=== PATIENT | male | born 1945 | race Caucasian/White ===

== ENCOUNTER → 2023-09-16 13:23 | Outpatient (REF) | payer MEDICARE, OTHER, SELFPAY ==
[2023-09-16 15:32] LABS: % Basophils 1.1 % (0-2); % Eosinophils 7.2 % (0-6); % Immature Granulocytes 0.2 % (0-0.5); % Lymphocytes 29.2 % (20.5-51.1); % Monocytes 9.2 % (1.7-9.3); % Neutrophils 53.1 % (42.2-75.2); Absolute Basophils 0.1 10^3/uL (0-0.2); Absolute Eosinophils 0.3 10^3/uL (0-0.7); Absolute Lymphocytes 1.4 10^3/uL (1.2-3.4); Absolute Monocytes 0.4 10^3/uL (0.1-0.6); Absolute Neutrophils 2.5 10^3/uL (1.4-6.5); Hematocrit 39.8 % (39.0-52.0); Hemoglobin 13.2 g/dL (13.0-18.0); Mean Corp Hgb Conc. 33.2 g/dL (33.0-37.0); Mean Corpuscular Hgb 33.2 pg (27.0-31.0); Mean Platelet Volume 9.9 fL (7.4-10.4); Nucleated Red Blood Cells % 0 % (-); Platelet Count 208 10^3/uL (130-400); Red Blood Cell Count 3.98 10^6/uL (4.70-6.10); Red Cell Dist. Width 12.7 % (11.5-14.5); White Blood Cell Count 4.7 10^3/uL (4.8-10.8)
== END ==
LOC: HWLAB 13:23
PROVIDERS: ATTENDING PHYSICIAN Internal Medicine
DX: N50.82 Scrotal pain (principal); N45.1 Epididymitis
CPT/HCPCS: 36415; 85025

== ENCOUNTER → 2023-09-24 16:28 | Outpatient (REF) | payer MEDICARE, OTHER, SELFPAY | LOC: RAD 16:28 | PROVIDERS: ATTENDING PHYSICIAN Internal Medicine | DX: N50.82 Scrotal pain (principal); N45.1 Epididymitis | CPT/HCPCS: 76870; 93976 ==

== ENCOUNTER → 2024-04-23 16:22 | Outpatient (REF) | payer MEDICARE, OTHER, SELFPAY | LOC: HWRAD 16:22 | PROVIDERS: ATTENDING PHYSICIAN Nurse Practitioner Family | DX: R05.9 Cough, unspecified (principal) | CPT/HCPCS: 71046 ==

== ENCOUNTER 2024-04-26 18:31 | Observation (INO) | payer MEDICARE, OTHER, SELFPAY ==
[2024-04-26 13:52] VITALS: BP 145/85
--- NOTE | 2024-04-26 13:55 | ED.GENMED ---
ED Provider Triage
<Salas Dolan Jr., PA-C - Last Filed: 04/26/24 13:56>
-
Patient seen by provider in Triage?: Seen in Triage
Attestation: A medical screening examination has been initiated by a qualified medical provider. Based on the assessment performed at this time, it has been determined that an emergent medical condition may exist and the patient has been informed
that further medical evaluation and possible additional diagnostic testing may be needed.
HPI: 78-year-old male presenting to the emergency department with concerns of failed outpatient management of pneumonia. Was diagnosed with the flu 2 weeks ago started on Tamiflu had some worsening symptoms and had an x-ray 3 days ago showing a
right lower lobe pneumonia started on doxycycline and Ceftin not having any improvement ongoing chest discomfort shortness of breath cough and intermittent fever. Here initial labs repeated chest x-ray ordered for further assessment. Otherwise
pulse ox in the 90s at triage
GENERAL: Alert , in no apparent distress
EYE: No visual abnormalities.
NECK: Trachea midline
ENT: No visible abnormalities.
LUNGS: No acute respiratory distress
NEUROLOGICAL: Alert and oriented
SKIN: Skin intact. No visible changes.
MUSCULOSKELETAL: Moving extremities normally
PSYCH: Normal and appropriate interaction.
This is a medical evaluation conducted in person to initiate diagnostic evaluation and provide initial therapeutics. Please see further documentation by the treating clinician.
History of Present Illness
<Salas Dolan Jr., PA-C - Last Filed: 04/26/24 13:56>
General
Chief Complaint: Pneumonia Symptoms
Time Seen by Provider: 04/26/24 16:50
<Marlon Burroughs PA-C - Last Filed: 04/26/24 17:13>
General
Source: patient
Exam Limitations: none
History of Present Illness
History of Present Illness:
78-year-old male presents with worsening illness including cough fatigue decreased appetite. He was diagnosed with influenza 1226 and completed a course of Tamiflu. He persisted to be sick with a cough and chills. Outpatient x-ray performed last
week demonstrated right middle lobe pneumonia. Family doctor started on doxycycline and cefuroxime. He notes no improvement and notes persistent cough fatigue and chills. He states he is not eating or drinking much either. He is not a smoker.
No history of diabetes. He denies chest pain. No leg swelling. No other complaints at this time
Past History
<Salas Dolan Jr., PA-C - Last Filed: 04/26/24 13:56>
Past History
ED Past Medical History: GERD
ED Past Surgical History: Tonsilectomy and Urological
Social History
Tobacco: Non-smoker
Alcohol: Daily (wine with dinner)
Drug: None
Personal:
Living: with family
Family History
Family History: Negative Diabetes, Hypertension, Early CAD, Asthma or Cancer
Phy Exam
<Marlon Burroughs PA-C - Last Filed: 04/26/24 17:13>
Physical Exam
Physical Exam:
General: Slightly ill-appearing male no acute respiratory distress HEENT: Normocephalic atraumatic neck is supple
Heart: Regular rate and rhythm no murmurs
Lungs: Rales right side left side clear
Abdomen is soft nontender nondistended no guarding rebound
Extremities: No cyanosis
Skin: Warm no rash
Course
<Salas Dolan Jr., PA-C - Last Filed: 04/26/24 13:56>
Orders/Labs/Results
Orders:
Orders
04/26/24 13:53
Electrocardiogram (*1) Stat
Reason for Study: Other
Other Reason for Exam: pneumonia
EKG- Treatment ONCE
CR Chest - 2 Views Urgent
Comment:
Reason For Exam: sob cough
04/26/24 14:02
Complete Blood Count/With Diff Urgent
Comprehensive Metabolic Panel Urgent
Lactic Acid Q4H
Comment: CANCEL 2nd LACTIC ACID IF 1st LACTIC ACID IS LESS THAN 2
NT-proBNP Urgent
04/26/24 17:04
0.9% Sodium Chloride 1000 ml [Nss] 1,000 ml IV BOLUS
04/26/24 17:08
Azithromycin 500 mg/250 ml [Zithromax Infusion] 500 mg in 250 ml IV NOW
CefTRIAXone [Rocephin] 1,000 mg IV NOW STA
Abnormal Lab Results
04/26/24
14:02
RBC 4.29 L 10^6/uL
(4.70-6.10)
MCV 96.0 H fL
(80.0-94.0)
MCH 33.1 H pg
(27.0-31.0)
Absolute Monos (auto) 0.7 H 10^3/uL
(0.1-0.6)
Lymphocytes % 16.2 L %
(20.5-51.1)
Glucose 105 H mg/dl
(70-99)
04/26/24 14:02
04/26/24 14:02
Vital Signs
Initial and Last Documented VS:
Initial Vital Signs
Temp Pulse Resp BP Pulse Ox
98.2 F 76 20 145/85 98
04/26/24 13:52 04/26/24 13:52 04/26/24 13:52 04/26/24 13:52 04/26/24 13:52
Last Documented Vital Signs
Temp Pulse Resp BP Pulse Ox
98.2 F 74 18 119/78 97
04/26/24 13:52 04/26/24 15:18 04/26/24 15:18 04/26/24 15:18 04/26/24 15:18
<Marlon Burroughs PA-C - Last Filed: 04/26/24 17:13>
Orders/Labs/Results
Orders:
Orders
04/26/24 13:53
Electrocardiogram (*1) Stat
Reason for Study: Other
Other Reason for Exam: pneumonia
EKG- Treatment ONCE
CR Chest - 2 Views Urgent
Comment:
Reason For Exam: sob cough
04/26/24 14:02
Complete Blood Count/With Diff Urgent
Comprehensive Metabolic Panel Urgent
Lactic Acid Q4H
Comment: CANCEL 2nd LACTIC ACID IF 1st LACTIC ACID IS LESS THAN 2
NT-proBNP Urgent
04/26/24 17:04
0.9% Sodium Chloride 1000 ml [Nss] 1,000 ml IV BOLUS
04/26/24 17:08
Azithromycin 500 mg/250 ml [Zithromax Infusion] 500 mg in 250 ml IV NOW
CefTRIAXone [Rocephin] 1,000 mg IV NOW STA
Abnormal Lab Results
04/26/24
14:02
RBC 4.29 L 10^6/uL
(4.70-6.10)
MCV 96.0 H fL
(80.0-94.0)
MCH 33.1 H pg
(27.0-31.0)
Absolute Monos (auto) 0.7 H 10^3/uL
(0.1-0.6)
Lymphocytes % 16.2 L %
(20.5-51.1)
Glucose 105 H mg/dl
(70-99)
04/26/24 14:02
04/26/24 14:02
Vital Signs
Initial and Last Documented VS:
Initial Vital Signs
Temp Pulse Resp BP Pulse Ox
98.2 F 76 20 145/85 98
04/26/24 13:52 04/26/24 13:52 04/26/24 13:52 04/26/24 13:52 04/26/24 13:52
Last Documented Vital Signs
Temp Pulse Resp BP Pulse Ox
98.2 F 74 18 119/78 97
04/26/24 13:52 04/26/24 15:18 04/26/24 15:18 04/26/24 15:18 04/26/24 15:18
<Marlon Burroughs PA-C - Last Filed: 04/26/24 17:13>
MDM/Problems Addressed
Differential Diagnosis Includes:
Persistent cough shortness of breath fatigue. X-ray redemonstrates right middle lobe pneumonia today. Labs reviewed normal BMP white count is normal however clinically patient is declining. Patient is failing outpatient treatment with oral
antibiotics. Will transition to IV fluids Zithromax and Rocephin will admit to hospital for persistent pneumonia
<Marlon Burroughs PA-C - Last Filed: 04/26/24 17:13>
*Critical Care Note
Total Time (30-74mins, 75-104mins- exclusive of procedures): Not Applicable
ED Attending Note
<Salas Dolan Jr., PA-C - Last Filed: 04/26/24 13:56>
-
Portions of this chart may have been created with voice recognition software.� Occasional wrong word or��sound alike� substitutions may have occurred due to the inherent limitations of voice recognition software.
Discharge Plan
Departure
Patient Disposition: Admit
Date of Disposition: 04/26/24
Time of Disposition: 17:12
Presentation/result/management discussed w/ accepting MD/DO: Hospitalist
Discharge Problem:
Pneumonia
Prescriptions:
No Action
ascorbic acid (vitamin C) [Vitamin C] 1,000 MG tablet
1,000 mg PO DAILY
atorvastatin 10 MG tablet
10 mg PO QPM
omeprazole 40 MG capsule,delayed release(DR/EC)
40 mg PO DAILY
aspirin 81 MG tablet,chewable
81 mg PO HS
vitamin B complex 1 TAB tablet
1 tab PO DAILY
magnesium 200 MG tablet
600 mg PO BID
coenzyme Q10 [Co Q-10] 200 MG capsule
200 mg PO BID
cholecalciferol (vitamin D3) 2,000 UNITS tablet
5,000 units PO DAILY
alpha lipoic acid 200 MG capsule
200 mg PO DAILY
omega 7-mci-xnt-fish oil 1 EACH capsule
1 ea PO DAILY
L.acidoph,paracasei,B.animalis 1 EACH capsule
1 ea PO DAILY
lidocaine 1 EACH adhesive patch,medicated
1 ea TP HS
Referrals:
Emmanuel Carlos CRNP [Family Provider] -
Interventions
Interventions:
*General Assessment Last Done: 04/26/24 17:08
ED- Fall Risk Assessment Last Done: 04/26/24 17:08
ED- Cardiac Assessment Last Done: 04/26/24 17:08
ED- Pulmonary Assessment Last Done: 04/26/24 17:08
Discharge Date and Time
Print Language: [place]
[2024-04-26 14:27] LABS: % Basophils 0.4 % (0-2); % Eosinophils 0.9 % (0-6); % Immature Granulocytes 0.3 % (0-0.5); % Lymphocytes 16.2 % (20.5-51.1); % Monocytes 9.3 % (1.7-9.3); % Neutrophils 72.9 % (42.2-75.2); Absolute Eosinophils 0.1 10^3/uL (0-0.7); Absolute Lymphocytes 1.3 10^3/uL (1.2-3.4); Absolute Monocytes 0.7 10^3/uL (0.1-0.6); Absolute Neutrophils 5.8 10^3/uL (1.4-6.5); Hematocrit 41.2 % (39.0-52.0); Hemoglobin 14.2 g/dL (13.0-18.0); Mean Corp Hgb Conc. 34.5 g/dL (33.0-37.0); Mean Corpuscular Hgb 33.1 pg (27.0-31.0); Mean Platelet Volume 8.7 fL (7.4-10.4); Nucleated Red Blood Cells % 0 % (-); Platelet Count 312 10^3/uL (130-400); Red Blood Cell Count 4.29 10^6/uL (4.70-6.10); Red Cell Dist. Width 12.3 % (11.5-14.5)
[2024-04-26 14:43] LABS: ALT (SGPT) 21 U/L (0-50); AST (SGOT) 31 U/L (17-59); Albumin 3.9 g/dl (3.5-5.0); Alkaline Phosphatase 63 U/L (38-126); Blood Urea Nitrogen 13 mg/dl (9-20); Carbon Dioxide 27 mmol/L (22-30); Chloride 100 mmol/L (98-107); Glucose 105 mg/dl (70-99); Lactic Acid 1.1 mmol/L (0.7-2.0); Potassium 4.4 mmol/L (3.5-5.1); Sodium 138 mmol/L (135-145); Total Protein 6.9 g/dl (6.3-8.2); eGFR > 60.00
[2024-04-26 14:50] LABS: NT-proBNP 576 pg/ml
[2024-04-26 15:18] VITALS: BP 119/78
[2024-04-26 17:10] VITALS: BP 122/74
[2024-04-26] MEDS: NSS 1000 IV (17:15)
[2024-04-26] MEDS: ROCEPHIN 1000 MG IV (17:16)
[2024-04-26] MEDS: ZITHROMAX INFUSION 250 IV (17:16)
--- NOTE | 2024-04-26 17:46 | HPS.HSE ---
Addendum entered and electronically signed by Sandeep Fernández MD 04/27/24 07:43:
See my update note
Original Note:
Family Physician
-
Family Physician: VARSHA Aly
Chief Complaint
-
Persistent Cough
History of Present Illness
Patient is a 78 y/o male past medical history of interstitial lung disease who presents with persistent cough and shortness of breath. Patient reports he was diagnosed with Influenza A on Apr 15. He say his PCP on April 23 due to persistent
cough at which time he had a CXE that revealed pneumonia and he was prescribed cefuroxime and doxycycline. Patient reports despite oral antibiotics he continues with cough, mild shortness of breath and signficant fatgue. He denies fevers, sweats or
chills.
Medical History
Past Medical History
Past Medical History: Reports Other
Additional Past Medical History:
Interstital Lung Disease
SVT
Hyperlipidemia
GERD
Obstructive Sleep Apnea
Past Surgical History: Reports Other
Additional Past Surgical History:
Tonsillectomy
Vasectomy
Social History
Tobacco: Non-smoker
Alcohol: Daily (Wine with dinner)
Personal:
Living: With Family
Family History
Family History: Not pertinent
Allergies / Home Medications
Allergies reflects when Allergies were last updated in [facility].
Home Medications with original date entered in [facility]
Allergy/Medication List:
Allergies
Allergy/AdvReac Type Severity Reaction Status Date / Time
pollen extracts Allergy Itching Verified 10/26/20 08:20
Home Medications
ascorbic acid (vitamin C) 1,000 mg tablet (Vitamin C) 1,000 mg PO DAILY 10/19/20
aspirin 81 mg chewable tablet 81 mg PO HS 10/19/20
atorvastatin 10 mg tablet 10 mg PO HS 10/19/20
coenzyme Q10 200 mg capsule (Co Q-10) 200 mg PO DAILY 10/19/20
omeprazole 40 mg capsule,delayed release 40 mg PO DAILY 10/19/20
vitamin B complex 1 tab PO DAILY 10/19/20
Lactobac no.2-Bifidobac no.1-S. thermo 112.5 billion cell capsule (Visbiome) 1 cap PO DAILY 04/26/24
albuterol sulfate 90 mcg/actuation aerosol inhaler 2 puff inhalation R Q6HPRN PRN sob 04/26/24
cefuroxime axetil 500 mg tablet 500 mg PO BID 04/26/24
cholecalciferol (vitamin D3) 125 mcg (5,000 unit) tablet (Vitamin D3) 125 mcg PO DAILY 04/26/24
doxycycline hyclate 100 mg capsule 100 mg PO BID 04/26/24
magnesium oxide 200 mg PO DAILY 04/26/24
omega-3 fatty acids-fish oil 684 mg-1,200 mg capsule,delayed release 1 cap PO DAILY 04/26/24
Review of Systems
-
A 12 point ROS was completed and negative except as noted: Yes
Constitutional: Denies Fever or Chills
Respiratory: Reports See HPI
Physical Exam
Vital Signs
Vital Signs
Temp Pulse Resp BP Pulse Ox
98.2 F 74 18 122/74 97
04/26/24 13:52 04/26/24 17:10 04/26/24 17:10 04/26/24 17:10 04/26/24 17:10
Physical Exam
General: Comfortable and Conversant
HEENT: Anicteric and Other (Mask covering nose and mouth)
Respiratory: Wheezes, Rales (Right) and Non Labored Respirations
Cardiac: S1/S2 and Regular Rhythm
GI: Soft and Non Tender
Musculoskeletal: No Clubbing, No Cyanosis and No Edema
Skin: Warm and Dry
Neuro: Awake, Alert, Oriented and Nonfocal/grossly intact
Psych: Calm
Laboratory Results
-
04/26/24 14:02
04/26/24 14:02
Laboratory Results
Lactic Acid Cancelled 04/26/24 18:00
Total Bilirubin 1.0 mg/dl (0.2-1.3) 04/26/24 14:02
AST 31 U/L (17-59) 04/26/24 14:02
ALT 21 U/L (0-50) 04/26/24 14:02
Alkaline Phosphatase 63 U/L (38-126) 04/26/24 14:02
Data Reviewed
-
Diagnostic Radiology: Report Reviewed by me
Lab Data: Labs Reviewed by me
Impression/Plan
-
Right Middle Lobe Pneumonia / Acute Bronchitis
-Transition to Vancomycin and Cefepime given failed oral antibiotics and underlying interstitial lung disease
-Check strep and legionella antigen
-Attempt to obtain sputum culture
-Add Mucinex and Tessalon Perles for cough
-Add DuoNeb QID and PRN
-Add Decadron 4mg q8h
Hyperlipidemia
-Continue atorvastatin
GERD
-Continue Protonix
DVT proph: Lovenox
Code Status: Full Code
[2024-04-26 18:07] LABS: COVID-19 Antigen Negative (Negative)
--- NOTE | 2024-04-26 18:21 | W.PN.UPDATE ---
Update Note
Progress Note Update
Seen and examined by me independently in collaboration with the nurse practitioner Asael.
Past medical history/social history/medication/allergies reviewed.
Lab data and imaging data reviewed.
Patient with a history of asbestosis exposure and ILD based on prior imaging [not by history from patient] had flu positive over the [place]. Been continued on feeling fatigued and having cough with now shortness of breath. 2 days ago he had a
chest x-ray which raised a concern of a right middle lobe pneumonia and was put on antibiotics without improvement. He continues to feel worse with fatigue and shortness of breath. No fever or chills.His heard some wheezing at home. He has
used the as needed inhalers. Hx of recurrent pneumonia per pt. 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
Nontoxic looking. Not hypoxic.
Chest exam shows right-sided reactive airways with wheeze and there are few crackles in the left base 2. No respiratory distress.
Repeat chest x-ray shows persistent right middle lobe opacity.
Clinical case of community-acquired pneumonia post influenza infection. With a history of ILD and recurrent pneumonias and failed outpatient oral cephalosporin/doxycycline treatments will admit patient to hospital, start on cefepime and vancomycin
for MDR pending culture data. Check an MRSA swab, sputum culture, urinary Streptococcus/Legionella antigen. If spikes fever check blood cultures.
Patient also have reactive airways with underlying pneumonia. Will treat with a short course of steroids as well and follow the progress.
Full code.
[2024-04-26 19:03] VITALS: BP 120/72
[2024-04-26 19:27] LABS: Procalcitonin < 0.05 ng/ml (0.0-0.25)
[2024-04-26 21:02] VITALS: BP 141/80; BMI 21.6
[2024-04-26] MEDS: DUONEB 3 ML INH (21:18)
--- NOTE | 2024-04-26 21:52 | PHA.VAN.IN ---
Assessment
- Assessment
Renal Function: Appears similar to baseline
Concomitant Antimicrobials: CEFEPIME
- Previous Dosing Experience
Previous Regimen: NONE
AUC Dosing Plan
- Dosing Variables
Dosing Weight (kg): 76.4
Dosing CrCl (ml/min): 97
Vd coefficient (L/kg): 0.7
- Empiric Dosing
Initial / Loading Dose: 2GM
Maintenance Regimen: 1250MG IV Q12H
Estimated AUC (mcg*h/mL): 586
Estimated Peak (mcg*h/mL): 36.6
Estimated Trough (mcg/ml): 15
Estimated Half Life (H): 8.2
Pharmacokinetics Vancomycin I
- -
Patient Age: 78
Patient Sex: Male
Vancomycin Day #: 1
Indication: Pulmonary/Respiratory
Height / Weight:
Height 6 ft 2 in
Actual Weight 76.402 kg
Pertinent Past Medical History: ILD; RECURRENT PNA
- Vital Signs / Lab Results
Temp Pulse Resp BP Pulse Ox
98 F 77 18 141/80 95
04/26/24 21:02 04/26/24 21:22 04/26/24 21:22 04/26/24 21:02 04/26/24 21:22
Lab Results - Hematology
04/26/24
14:02
WBC 8.0
Lab Results - Chemistry
04/26/24
14:02
BUN 13
Creatinine 0.7
Albumin 3.9
04/26/24 04/26/24
14:02 18:00
Lactic Acid 1.1 Cancelled
Microbiology Results
04/26/24 17:23 Influenza Types A & B (MAXIMILIANO) - Final
Nasal Swab Negative for Influenza A & B, NAAT
Negative results must be combined with clinical observations
and patient history.
Nucleic Acid Amplification test (NAAT)performed on the
[employer] platform.
[2024-04-26] MEDS: LOVENOX 40 MG SC (22:07)
[2024-04-26] MEDS: MUCINEX 600 MG PO (22:08)
[2024-04-26] MEDS: DECADRON 4 MG IV (22:09)
[2024-04-26] MEDS: VANCOCIN 540 MG IV (22:09)
[2024-04-26] MEDS: LIPITOR 10 MG PO (22:10)
[2024-04-26] MEDS: LOW STRENGTH ASPIRIN 81 MG PO (22:10)
[2024-04-26] MEDS: MAXIPIME 1000 MG IV (22:12)
[2024-04-26] MEDS: STERILE WATER FOR INJECTION 10 ML IV (22:12)
--- NOTE | 2024-04-26 22:40 | PTCARENOTE ---
Receive pt from ER. Pt alert oriented X3, calm and cooperative, in no resp distress. Pt assist X1 to his bed, steady gait. Pt oriented to the room, call eid within reach. Pt has a a frequent moist non productive cough, dyspnea on exertion. Pt
denies chest pain, dizziness, or legs swelling. VSS (T=98, HR=80, RR=19, SpO2=97% on RA). IV Decadron, maxipime given, IV Vancomycin infusing as per order. Will continue to monitor.
[2024-04-26 23:30] VITALS: BP 126/78
[2024-04-27] MEDS: MAXIPIME 1000 MG IV ×3 (05:07→22:14)
[2024-04-27] MEDS: STERILE WATER FOR INJECTION 10 ML IV ×3 (05:07→22:14)
[2024-04-27] MEDS: DECADRON 4 MG IV ×3 (05:07→22:13)
[2024-04-27] MEDS: VANCOCIN 275 MG IV (05:08)
[2024-04-27 06:00] VITALS: BMI 21.4
[2024-04-27 07:00] VITALS: BP 132/75
[2024-04-27] MEDS: DUONEB 3 ML INH ×4 (07:23→19:25)
[2024-04-27] MEDS: MUCINEX 600 MG PO ×2 (08:00→20:30)
[2024-04-27] MEDS: PROTONIX 40 MG PO (08:00)
--- NOTE | 2024-04-27 08:33 | PHA.VAN.FU ---
Vancomycin Assessment / Plan
- Assessment
Renal Function: No New Labs Today
In the past 24 hrs, patient has been: Afebrile
Concomitant Antimicrobials: cefepime
- Dosing Plan
Adjust Regimen to: Vanc 1000mg Q12H starting at 1800
New Regimen Predicts: AUC (472), Peak (30), Trough (11.9)
- Monitoring Plan
No level(s) ordered at this time: consider levels in next few days
- Follow Up
Pharmacy will continue to follow.
Vancomycin Follow UP
- -
Patient Age: 78
Patient Sex: Male
Vancomycin Day #: 2
Indication: Pulmonary/Respiratory
Requesting Provider: Curly Foss
Pertinent Antimicrobial Allergies:
no pertinent antibiotic allergies
Height / Weight:
Height 6 ft 2 in
Actual Weight 75.41 kg
Pertinent Past Medical History: ILD, recent influenza
- Vital Signs / Lab Results
Temp Pulse Resp BP Pulse Ox
98 F 52 15 132/75 95
04/27/24 07:00 04/27/24 07:29 04/27/24 07:29 04/27/24 07:00 04/27/24 08:00
Lab Results - Hematology
04/26/24
14:02
WBC 8.0
Lab Results - Chemistry
04/26/24
14:02
BUN 13
Creatinine 0.7
Albumin 3.9
04/26/24 04/26/24
14:02 18:00
Lactic Acid 1.1 Cancelled
Microbiology Results
04/27/24 06:17 Legionella Urinary Antigen - Final
Urine Negative for Legionella pneumophila Serogroup 1 antigen.
A negative result does not rule out the possiblity of
Legionella infection due to other serogroups or species of
Legionella. Clinical correlation is recommended.
Streptococcus pneumoniae Antigen (M - Final
Negative for Streptococcus pneumoniae antigen.
A negative result does not exclude infection with
Streptococcus pneumoniae. Clinical correlation is
recommended.
04/26/24 17:23 Influenza Types A & B (MAXIMILIANO) - Final
Nasal Swab Negative for Influenza A & B, NAAT
Negative results must be combined with clinical observations
and patient history.
Nucleic Acid Amplification test (NAAT)performed on the
[employer] platform.
--- NOTE | 2024-04-27 12:13 | W.PN.HOSP.TC ---
Today's Communication/Plan
-
DC Vanco
CW Cefepime and steroids
CW nebs
Assessment / Plan
Assessment / Plan
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
-Failed oral antibiotics and underlying interstitial lung disease
-Neg strep and legionella antigen
-Attempt to obtain sputum culture
-cw Mucinex and Tessalon Perles for cough
-cw DuoNeb QID and PRN
-cw Decadron 4mg q8h
- MRSA swab neg- dc vanco and cw Cefepime till cx data is back
Patient is feeling improved.-Continue with the current dose of steroids and antibiotics. procalcitonin being negative noted but clinical picture of post influenza infection and underlying ILD cannot rule out bacterial component, failed OP abx.
Continue with antibiotics .
Hyperlipidemia
-Continue atorvastatin
GERD
-Continue Protonix
DVT proph: Lovenox
Code Status: Full Code
Anticipated Discharge: Within 24 hours
Subjective/Interval History
-
Date of Service: April 27, 2024
Feeling improved since yesterday. Improved fatigue. Cough still present mostly dry. Breathing comfortable at rest.
No chest pain.
No fever chills.
No nausea vomiting.
Objective Data
-
Vital Signs:
Vital Signs
Temp Pulse Resp BP Pulse Ox
98 F 52 15 132/75 95
04/27/24 07:00 04/27/24 07:29 04/27/24 07:29 04/27/24 07:00 04/27/24 09:32
I&O
04/26/24 04/27/24 04/28/24
06:59 06:59 06:59
Intake Total 715 / 715 180 / 180
Output Total 350 / 350
Balance 365 / 365 180 / 180
Review of Systems
-
Constitutional: Denies Fever or Chills
EENT: Denies Sore Throat
Abdomen/GI: Denies Abdominal Pain, Nausea, Vomiting or Diarrhea
Neuro: Denies Dizzy or Headache
Physical Exam
-
General: No Apparent Distress
Respiratory: Non Labored Respirations and Decreased Breath Sounds (in general); Negative Wheezes (today), Crackles (today) or Accessory Resp Muscle Use
Cardiac: Regular Rhythm and S1/S2
Neuro: AO x 3
Data Reviewed
-
Labs: Labs Reviewed by me
[2024-04-27 15:07] VITALS: BP 122/70
--- NOTE | 2024-04-27 15:08 | CM ---
Alert awake oriented patient who lives with his Natacha who lives in a 1 story home with 1 step to enter and bed and bathroom on first floor. He is independent in driving and in all activities of daily living.He was offered VN he declined need.
No adaptive devices.His addresses [address]
NO VN hx / No SNF history
Pharmacy [facility]
PCP Ramona Flores
PLAN Home Declined VN
[2024-04-27] MEDS: LOVENOX 40 MG SC (17:54)
[2024-04-27] MEDS: LIPITOR 10 MG PO (22:13)
[2024-04-27] MEDS: LOW STRENGTH ASPIRIN 81 MG PO (22:14)
[2024-04-27 23:37] VITALS: BP 110/69
[2024-04-28] MEDS: DECADRON 4 MG IV ×2 (05:54→14:24)
[2024-04-28] MEDS: STERILE WATER FOR INJECTION 10 ML IV ×2 (05:55→14:25)
[2024-04-28] MEDS: MAXIPIME 1000 MG IV ×2 (05:55→14:25)
[2024-04-28 06:00] VITALS: BMI 21.3
[2024-04-28] MEDS: DUONEB 3 ML INH ×2 (07:11→10:57)
[2024-04-28 07:30] VITALS: BP 124/75
[2024-04-28] MEDS: FLUSH (NSS) 1 FLUSH IV ×2 (08:06→14:25)
[2024-04-28] MEDS: MUCINEX 600 MG PO (08:06)
[2024-04-28] MEDS: PROTONIX 40 MG PO (08:06)
--- NOTE | 2024-04-28 13:43 | W.PN.HOSP.TC ---
Today's Communication/Plan
-
DC
Assessment / Plan
Assessment / Plan
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
-Failed oral antibiotics and underlying interstitial lung disease
-Neg strep and legionella antigen
-Attempt to obtain sputum culture
-cw Mucinex and Tessalon Perles for cough
-No wheeze today, improved clincal symptoms. Switch to PRN albuterol inhaler
- Switch to oral prednione and quickly taper
- MRSA swab neg- dced vanco
- So far dx neg
- With improvement will switch to oral cefpodoxime for 5 more days
Patient is feeling improved. procalcitonin being negative noted but clinical picture of post influenza infection and underlying ILD cannot rule out bacterial component, failed OP abx. Continue with antibiotics .
Hyperlipidemia
-Continue atorvastatin
GERD
-Continue Protonix
DVT proph: Lovenox
Code Status: Full Code
Medically stable for dc home today
Patient advised to repeat a chest x-ray in 3 to 4 weeks time to follow the pneumonia.
Problem discharge 32 minutes
Anticipated Discharge: Today
Subjective/Interval History
-
Date of Service: April 28, 2024
Feeling improved .
Denies SOB at rest.
No fever.
Improved fatigue.
No N/V or chest pain.
Objective Data
-
Vital Signs:
Vital Signs
Temp Pulse Resp BP Pulse Ox
97.5 F 59 16 124/75 97
04/28/24 07:30 04/28/24 10:59 04/28/24 10:59 04/28/24 07:30 04/28/24 10:59
I&O
04/27/24 04/28/24 04/29/24
06:59 06:59 06:59
Intake Total 715 / 715 1380 / 1380
Output Total 350 / 350
Balance 365 / 365 1380 / 1380
Review of Systems
-
Constitutional: Denies Fever
Respiratory: Reports Cough (ok); Denies Trouble Breathing
Neuro: Denies Dizzy
Physical Exam
-
General: Comfortable
HEENT: Moist Mucous Membranes
Respiratory: Non Labored Respirations; Negative Wheezes, Crackles or Accessory Resp Muscle Use
Cardiac: Regular Rhythm and S1/S2
Neuro: AO x 3
Psych: Calm; Negative Confused
--- NOTE | 2024-04-28 15:26 | CM ---
MD entered order for discharge.
Spoke with pt in room .He said he was ready for discharge.
He said his Natacha will drive hem home.
Offered VN he declined need.
PLAN Home no needs
[2024-04-28] MEDS: DUONEB INH (15:32)
[2024-04-28 15:37] VITALS: BP 117/68
--- NOTE | 2024-04-28 18:41 | W.DCSUMMARY ---
Discharge Summary
Discharge Data
Date of Admission: 04/26/24
Date of Discharge: 04/28/24
-
Pending Results: No
Hospital Course
Primary diagnosis:
Right Middle Lobe Pneumonia
Acute bronchitis
Post influenza infection
History of interstitial lung disease
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
Secondary diagnosis:
Hyperlipidemia
Gastroesophageal reflux disease
Hospital course:
Patient with a history of asbestosis exposure and ILD based on prior imaging [not by history from patient] had flu positive over the [place]. Been continued on feeling fatigued and having cough with now shortness of breath. 2 days ago he had a
chest x-ray which raised a concern of a right middle lobe pneumonia and was put on antibiotics without improvement. He continues to feel worse with fatigue and shortness of breath.
On admission Chest exam shows right-sided reactive airways with wheeze and there are few crackles in the left base . No respiratory distress.
Repeat chest x-ray shows persistent right middle lobe opacity.
Clinical case of community-acquired pneumonia post influenza infection. With a history of ILD and recurrent pneumonias and failed outpatient oral cephalosporin/doxycycline treatments.
He was admitted initially put on cefepime and vancomycin. His culture data including blood cultures, urinary Streptococcus and Legionella antigen were negative. MRSA swab was negative. His Vanco was discontinued was continued on cefepime.
Steroids were added because of reactive airways. With the above treatments he had improvement.
Procalcitonin was negative but clinical picture of post influenza infection and underlying ILD cannot rule out bacterial component, failed OP abx I would Continue with antibiotics.
He was advised to get a repeat chest x-ray in 3 to 4 weeks time to follow-up on the right middle lobe pneumonia.
Discharge Plan
-
Patient Disposition: Home (Routine Discharge)
Discharge Diagnosis/Procedures: RML pneumonia
Diet: Regular
Activity: As tolerated
Driving Restrictions: As prior to admission
Bathing Restrictions: None
Others Tests: Chest xray two-view in 3 to 4 weeks time-arrange through PCP
Referrals:
Emmanuel Carlos CRNP [Family Provider] - in less than 1 week
Prescriptions:
New
prednisone 10 mg tablet
10 mg PO DIRECTED Qty: 20 0RF
Rx Instructions:
40mg daily and cut it by 10mg every 2 days
guaifenesin 600 mg Tablet Extended Release 12hr
600 mg PO Q12 Qty: 14 0RF
cefpodoxime 200 mg tablet
200 mg PO BID Qty: 10 0RF
benzonatate 100 mg Capsule
200 mg PO TIDPRN PRN (Reason: cough) Qty: 20 0RF
Continued
ascorbic acid (vitamin C) [Vitamin C] 1,000 MG tablet
1,000 mg PO DAILY
atorvastatin 10 MG tablet
10 mg PO HS
omeprazole 40 MG capsule,delayed release(DR/EC)
40 mg PO DAILY
aspirin 81 MG tablet,chewable
81 mg PO HS
vitamin B complex 1 TAB tablet
1 tab PO DAILY
coenzyme Q10 [Co Q-10] 200 MG capsule
200 mg PO DAILY
albuterol sulfate 90 mcg/actuation Hfa Aerosol Inhaler
2 puff INHALATION R Q6HPRN PRN (Reason: sob)
Visbiome 112.5 billion cell Capsule
1 cap PO DAILY
omega-3 fatty acids-fish oil 684-1,200 mg Capsule,Delayed Release(Dr/Ec)
1 cap PO DAILY
cholecalciferol (vitamin D3) [Vitamin D3] 125 mcg (5,000 unit) Tablet
125 mcg PO DAILY
magnesium oxide 200 mg magnesium Tablet
200 mg PO DAILY
Discontinued
doxycycline hyclate 100 mg Capsule
100 mg PO BID
cefuroxime axetil 500 mg Tablet
500 mg PO BID
Discharge Orders:
Discharge Patient (As Directed); Ordered 04/28/24
Ordered By: Sandeep Fernández
Discharge Date and Time
Discharge Date/Time: 04/28/24 15:56
Print Language: KHMER
== END 2024-04-28 15:56 | disposition home or self-care (01) ==
LOC: 4 EAST ACU 18:31
PROVIDERS: Physician Assistant; Physician Assistant Medical; ADMITTING PHYSICIAN Internal Medicine; EMERGENCY PHYSICIAN Emergency Medicine; FAMILY PHYSICIAN Nurse Practitioner Family
DX: J18.9 Pneumonia, unspecified organism (principal); J20.9 Acute bronchitis, unspecified; R06.02 Shortness of breath; R05.9 Cough, unspecified; R50.9 Fever, unspecified; K21.9 Gastro-esophageal reflux disease without esophagitis; E78.5 Hyperlipidemia, unspecified; I49.8 Other specified cardiac arrhythmias; G47.33 Obstructive sleep apnea (adult) (pediatric); Z79.82 Long term (current) use of aspirin; Z77.090 Contact with and (suspected) exposure to asbestos; Z11.52 Encounter for screening for COVID-19
CPT/HCPCS: 71046; 80053; 83605; 83880; 84145; 85025; 87449; 87502; 87641; 87811; 87899; 93005; 94640; 96365; 96375; 99285; G0378

== ENCOUNTER → 2024-05-14 13:43 | Outpatient (REF) | payer MEDICARE, OTHER, SELFPAY | LOC: HWRAD 13:43 | PROVIDERS: ATTENDING PHYSICIAN Nurse Practitioner Family | DX: J18.9 Pneumonia, unspecified organism (principal) | CPT/HCPCS: 71046 ==

== ENCOUNTER → 2024-09-23 10:01 | Outpatient (REF) | payer MEDICARE, OTHER, SELFPAY ==
[2024-09-23 12:31] LABS: % Basophils 0.8 % (0-2); % Eosinophils 5.3 % (0-6); % Lymphocytes 33.8 % (20.5-51.1); % Monocytes 11.4 % (1.7-9.3); % Neutrophils 48.7 % (42.2-75.2); Absolute Eosinophils 0.2 10^3/uL (0-0.7); Absolute Lymphocytes 1.3 10^3/uL (1.2-3.4); Absolute Monocytes 0.5 10^3/uL (0.1-0.6); Absolute Neutrophils 1.9 10^3/uL (1.4-6.5); Hematocrit 39.7 % (39.0-52.0); Hemoglobin 13.5 g/dL (13.0-18.0); Mean Corpuscular Hgb 33.6 pg (27.0-31.0); Mean Corpuscular Volume 98.8 fL (80.0-94.0); Nucleated Red Blood Cells % 0 % (-); Platelet Count 178 10^3/uL (130-400); Red Blood Cell Count 4.02 10^6/uL (4.70-6.10); Red Cell Dist. Width 12.7 % (11.5-14.5)
[2024-09-23 12:39] LABS: ALT (SGPT) 19 U/L (0-50); AST (SGOT) 32 U/L (17-59); Albumin 4.1 g/dl (3.5-5.0); Alkaline Phosphatase 53 U/L (38-126); Blood Urea Nitrogen 14 mg/dl (9-20); Calcium 9.3 mg/dl (8.4-10.2); Carbon Dioxide 31 mmol/L (22-30); Chloride 109 mmol/L (98-107); Glucose 100 mg/dl (70-99); HDL Cholesterol 72 mg/dl; Iron 142 ug/dl (49-181); LDL Cholesterol, Calculated 65 mg/dl; Potassium 4.7 mmol/L (3.5-5.1); Sodium 143 mmol/L (135-145); Total Bilirubin 0.7 mg/dl (0.2-1.3); Total Cholesterol 150 mg/dl (50-199); Total Protein 6.9 g/dl (6.3-8.2); Triglyceride 65 mg/dl (10-149); Very Low Density Lipoprotein 13 mg/dl (0-30); eGFR > 60.00
[2024-09-23 12:48] LABS: Percent Saturation 44 % (20-50); Total Iron Binding Capacity 319 ug/dl (261-462)
[2024-09-23 12:57] LABS: Vitamin D, 25-OH*** 49.7 ng/mL (30-80)
[2024-09-23 13:10] LABS: TSH Reflex To Free T4 3.26 uIU/ml (0.47-4.68)
[2024-09-23 13:47] LABS: Folate 5.2 ng/ml (2.76-20); Vitamin B12 292 pg/ml (239-931)
== END ==
LOC: HWLAB 10:01
DX: R41.3 Other amnesia (principal); G25.2 Other specified forms of tremor; G25.0 Essential tremor; Z00.01 Encounter for general adult medical examination with abnormal findings; R53.82 Chronic fatigue, unspecified; E78.2 Mixed hyperlipidemia; I49.1 Atrial premature depolarization; E55.9 Vitamin D deficiency, unspecified
CPT/HCPCS: 36415; 80053; 80061; 82306; 82607; 82728; 82746; 83540; 83550; 84443; 85025

== ENCOUNTER → 2024-11-01 14:23 | Outpatient (REF) | payer MEDICARE, OTHER, SELFPAY | LOC: RAD 14:23 | DX: I63.341 Cerebral infarction due to thrombosis of right cerebellar artery (principal) | CPT/HCPCS: 93880 ==

== ENCOUNTER → 2024-11-09 08:09 | Outpatient (REF) | payer MEDICARE, OTHER, SELFPAY | LOC: RCS 08:09 | DX: I63.341 Cerebral infarction due to thrombosis of right cerebellar artery (principal); I08.1 Rheumatic disorders of both mitral and tricuspid valves; I49.3 Ventricular premature depolarization; I49.1 Atrial premature depolarization; I47.10 Supraventricular tachycardia, unspecified | CPT/HCPCS: 93225; 93226; 93306 ==

== ENCOUNTER → 2024-11-23 11:25 | Outpatient (REF) | payer MEDICARE, OTHER, SELFPAY ==
[2024-11-23 12:33] LABS: Glycohemoglobin (HgbA1c) 5.3 % (4.0-5.6)
[2024-11-23 13:33] LABS: HDL Cholesterol 59 mg/dl; Very Low Density Lipoprotein 13 mg/dl (0-30)
[2024-11-23 13:55] LABS: Vitamin D, 25-OH*** 54.5 ng/mL (30-80)
[2024-11-23 16:05] LABS: LDL Cholesterol, Calculated 87 mg/dl
[2024-11-23 20:59] LABS: CRP, Ultra Sensitive < 0.30 mg/L (0.30-5.00)
[2024-11-25 15:31] LABS: Lyme Antibody Screen, EIA Negative (Negative)
== END ==
LOC: REG 11:25
PROVIDERS: ATTENDING PHYSICIAN Psychiatry & Neurology Neurology; REFERRING PHYSICIAN Internal Medicine Cardiovascular Disease
DX: Z86.73 Personal history of transient ischemic attack (TIA), and cerebral infarction without residual deficits (principal); G30.1 Alzheimer's disease with late onset; F02.A3 Dementia in other diseases classified elsewhere, mild, with mood disturbance; R73.03 Prediabetes; E78.5 Hyperlipidemia, unspecified; E55.9 Vitamin D deficiency, unspecified
CPT/HCPCS: 36415; 80061; 82306; 82652; 83036; 84425; 85652; 86141; 86618; 86780

== ENCOUNTER → 2024-12-23 11:41 | Outpatient (REF) | payer MEDICARE, OTHER, SELFPAY | LOC: HWRAD 11:41 | PROVIDERS: ATTENDING PHYSICIAN Physician Assistant | DX: R51.9 Headache, unspecified (principal) | CPT/HCPCS: 70486 ==

== ENCOUNTER → 2025-03-23 12:00 | Outpatient (REF) | payer MEDICARE, OTHER, SELFPAY | LOC: DHSLP 12:00 | PROVIDERS: ATTENDING PHYSICIAN Internal Medicine Critical Care Medicine | DX: G47.30 Sleep apnea, unspecified (principal); R06.83 Snoring | CPT/HCPCS: 95800 ==

== ENCOUNTER → 2025-04-19 14:05 | Outpatient (REF) | payer MEDICARE, OTHER, SELFPAY | LOC: HWRAD 14:05 | DX: R07.89 Other chest pain (principal); R68.89 Other general symptoms and signs; J06.9 Acute upper respiratory infection, unspecified | CPT/HCPCS: 71046 ==